=== PATIENT | female | born 1995 | race African-American/Black ===

== ENCOUNTER 2016-06-04 14:12 | Emergency (ER) | payer OTHER ==
[~2016-06-04] VITALS: Ht 160 cm; Wt 71.7 kg
[2016-06-04 14:28] VITALS: BP 122/73
[2016-06-04] MEDS ORDERED: Cyclobenzaprine 10mg Tab ORAL ONE (14:45)
[2016-06-04 16:29] VITALS: BP 129/76
[2016-06-04] MEDS ORDERED: CYCLOBENZAPRINE10 MG ORAL (16:54)
[2016-06-04] MEDS ORDERED: IBUPROFEN600 MG ORAL (16:54)
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
--- NOTE | 2016-06-05 13:20 | Diagnostic Imaging Report ---
Indication: Neck Pain Findings: 3 views of the cervical spine were obtained. There is no acute fracture identified. Alignment is normal. There is minimal narrowing of the C5-6 intervertebral disc. The open-mouth odontoid view shows an intact dens and good alignment of the lateral masses with respect to the body of C2. There is no soft tissue swelling. Impression: No acute injury. Mild disc disease at C5-6
== END 2016-06-04 16:29 | disposition home or self-care (01) ==
LOC: EMR 14:31
DX: S29.012A Strain of muscle and tendon of back wall of thorax, initial encounter (principal); V43.62XA Car passenger injured in collision with other type car in traffic accident, initial encounter; Y93.9 Activity, unspecified; Y92.410 Unspecified street and highway as the place of occurrence of the external cause; M25.521 Pain in right elbow; M25.551 Pain in right hip; Z88.0 Allergy status to penicillin
CPT/HCPCS: 72040; 81025; 99284